=== PATIENT | female | born 1975 | race Hispanic/Latino ===

== ENCOUNTER 2018-01-10 06:20 | Day surgery (SDC) | payer OTHER, SELFPAY ==
[2018-01-09 17:15] VITALS: BMI 27.4
[2018-01-10] MEDS ORDERED: CEFAZOLIN/Water 2 GM/20 ML SYRINGE ONE (07:52)
[2018-01-10] MEDS ORDERED: Lidocaine 2% 10 ML INJ ONE (08:00)
[2018-01-10] MEDS ORDERED: Heparin 10,000 UNITS/1 ML VIAL ONE (08:00)
[2018-01-10] MEDS ORDERED: Bupivacaine PF 0.5% 30 ML VIAL ONE (08:00)
[2018-01-10] MEDS ORDERED: Betamet Acet/Betamet Na Ph 30 MG/5 ML VIAL ONE (08:00)
[2018-01-10] MEDS ORDERED: Hetastarch 6% 500 ML 0 ML ONE (08:00)
[2018-01-10] MEDS ORDERED: Bacitracin Zinc Ointment 30 gm TUBE ONE (08:00)
[2018-01-10] MEDS ORDERED: Fentanyl 100 MCG/2 ML VIAL ONE (08:08)
[2018-01-10] MEDS ORDERED: Midazolam HCl 2 mg/2 ml Vial ONE (08:20)
[2018-01-10] MEDS ORDERED: Sodium Chloride 0.9% 10 ML ONE (08:30)
[2018-01-10] MEDS ORDERED: diphenhydrAMINE 50 MG/ML VIAL ONE (14:57)
[2018-01-10] MEDS ORDERED: PROPOFOL 200 MG/20 ML VIAL ONE (14:57)
[2018-01-10] MEDS ORDERED: Dexamethasone 20 MG/5 ML VIAL ONE (14:57)
[2018-01-10] MEDS ORDERED: Ondansetron HCl/PF 4 MG/2 ML Vial ONE (14:57)
[2018-01-10] MEDS ORDERED: Lidocaine 1% PF 5 ML VIAL ONE (14:57)
[2018-01-10] MEDS ORDERED: Ketorolac Tromethamine 30 MG/ML VIAL ONE (14:57)
[2018-01-10] MEDS ORDERED: Glycopyrrolate 0.2 MG/ML 5 ML SYRINGE ONE (14:57)
--- NOTE | 2018-01-13 10:14 | OP ---
DATE OF PROCEDURE: 01/10/2018 PREOPERATIVE DIAGNOSES: 1. Right thumb extensor pollicis longus laceration. 2. Right extensor pollicis brevis laceration. POSTOPERATIVE DIAGNOSES: 1. Right thumb extensor pollicis longus laceration. 2. Right extensor pollicis brevis laceration. All in zone 2 right dorsal thumb. PROCEDURE: 1. Right thumb extensor pollicis longus repair. 1. Right thumb extensor pollicis brevis repair. TOURNIQUET TIME: 43 minutes. BLOOD LOSS: 10 mL. FINDINGS: Complete lacerations to extensor pollicis longus and extensor pollicis brevis with marked retraction proximally of the extensor pollicis longus tendon. DESCRIPTION OF PROCEDURE: After successful general endotracheal anesthesia the limb was prepped and draped. The patient had time out done appropriately. The right upper extremity. Anesthesia were pe rformed by [facility] general LMA technique augmented by a total of 20 mL 0.5% Marcaine bloc k, 10 given preincision and 10 afterwards, no epinephrine. We exposed the tendons by extending the laceration in a zigzag fashion, 1.5 cm distally and [address] proximally, but immediately we could find extensor pollicis brevis tendon without a marked loss o f tendon substance, but the proximal end of extensor pollicis longus retracted so we extended the inc ision back protecting all the cutaneous radial nerve branches and found that the extensor pollicis lo ngus had retracted back almost to the Yaneth's tubercle. We then slowly gently teased the tendon back into the wound, central arch to the ____, and then we be loc repair after irrigation of the wound. We first performed the extensor pollicis longus repair bec ause of the amount of tension, we used a modified Messer suture initially and then the center of the wound, placed 2 [id number] to augment this using 4-0 Prolene with the [id number] spared with inside the tendon repair with excellent repair. Tension was restored to the thumb distal joint and there was no gap formation with flexion of the digit. The extensor pollicis brevis was repaired using the same Prolene suture, which is 40 on RB1 needle, with 3 individual [id number] sutures. Patient then had the tourniquet deflated. Hemostasis obtained. We closed the wound in 2 layers with a running 4-0 Monocryl and ____ first and then the epidermis closed with a 4-0 nylon interrupted mat tress pattern. Bulky dressing was applied along with a thumb spica splint. The patient left the ope rating room without evidence of anesthetic or operative complication.
== END 2018-01-10 11:30 | disposition home or self-care (01) ==
LOC: SDC 06:20
PROVIDERS: ATTEND Orthopaedic Surgery Hand Surgery
PROC: 0LQ70ZZ Repair Right Hand Tendon, Open Approach (ICD-10-PCS; principal; 2018-01-10)
DX: S66.221A Laceration of extensor muscle, fascia and tendon of right thumb at wrist and hand level, initial encounter (principal); S61.011A Laceration without foreign body of right thumb without damage to nail, initial encounter; Z79.2 Long term (current) use of antibiotics; W31.2XXA Contact with powered woodworking and forming machines, initial encounter
CPT/HCPCS: A4216; J0131; J0702; J1100; J1200; J1644; J1885; J2001; J2250; J2405; J2704; J3010; J3490; S0020